=== PATIENT | male | born 2000 | race Two or more races ===

== ENCOUNTER 2021-06-29 02:11 | Emergency (ER) | payer OTHER ==
[~2021-06-29] VITALS: Ht 182.9 cm; Wt 72.6 kg
--- NOTE | 2021-06-29 02:20 | NUR ---
[facility], FOUND UNCONSCIOUS BY ROOMATES. GIVEN 8MG NASAL NARCAN. ADMITS TO TAKING XANAX. DENIES ANY S/I. CONNECTED PT TO POX AND MONITOR. SAFETY MEASURES IN PLACE
--- NOTE | 2021-06-29 02:45 | NUR ---
David HAND #20G S/L; PATENT AND INTACT. BLOOD COLLECTED AND GIVEN TO LAB [facility]
--- NOTE | 2021-06-29 02:50 | NUR ---
[employer] AT PT'S BEDSIDE
[2021-06-29 03:19] LABS: BASOPHILS % (AUTO) 0.3 % (0.0-2.0); EOSINOPHILS % (AUTO) 1.7 % (0.0-6.0); HEMATOCRIT 48 % (39-51); HEMOGLOBIN 15.9 g/dL (13.5-17.5); LYMPHOCYTES # (AUTO) 2.5 K/uL (0.8-4.8); LYMPHOCYTES % (AUTO) 20.6 % (20.0-44.0); MEAN CORPUSCULAR HGB CONC 34 g/dl (31.0-36.0); MEAN CORPUSCULAR VOLUME 89 fL (80-96); MONOCYTES # (AUTO) 0.5 K/uL (0.1-1.30); MONOCYTES % (AUTO) 4.1 % (2.0-12.0); NEUTROPHILS # (AUTO) 8.9 K/uL (1.8-8.9); NEUTROPHILS % (AUTO) 73.3 % (43.0-81.0); PLATELET COUNT (AUTO) 222 K/uL (150-450); RED BLOOD CELL COUNT(AUTO) 5.31 MIL/uL (4.5-6.0); WHITE BLOOD COUNT (AUTO) 12.1 K/uL (4.3-11.0)
[2021-06-29 03:28] LABS: ALANINE AMINOTRANSFERASE 31 U/L (12-78); ALBUMIN 4.3 g/dL (3.4-5.0); ALCOHOL, BLOOD < 3 mg/dL (0-0); ALKALINE PHOSPHATASE 136 U/L (46-116); ASPARTATE AMINOTRANSFERASE 23 U/L (15-37); BILIRUBIN,DIRECT 0.1 mg/dL (0.0-0.2); BILIRUBIN,TOTAL 0.3 mg/dL (0.2-1.0); CALCIUM, SERUM 9.4 mg/dL (8.5-10.1); CARBON DIOXIDE 25 mmol/L (21-32); CHLORIDE 100 mmol/L (98-107); CREATININE 0.9 mg/dL (0.6-1.3); GLUCOSE 169 mg/dL (74-106); POTASSIUM 3.5 mmol/L (3.5-5.1); SODIUM SERUM 137 mmol/L (136-145); UREA NITROGEN, BLOOD 14 mg/dL (7-18)
[2021-06-29 03:31] LABS: ACETAMINOPHEN 0 ug/ml (10-30)
--- NOTE | 2021-06-29 03:45 | NUR ---
URINE COLLECTED AND SENT TO LAB
[2021-06-29 04:20] LABS: BILIRUBIN,URINE NEGATIVE (NEGATIVE); COLOR,URINE YELLOW (YELLOW); LEUKOCYTE ESTERASE ,URINE NEGATIVE (NEGATIVE); NITRITE, URINE NEGATIVE (NEGATIVE); PROTEIN,URINE NEGATIVE (NEGATIVE); UGLUCOSE NEGATIVE (NEGATIVE); UROBILINOGEN,URINE 0.2 EU/dL (0.2)
--- NOTE | 2021-06-29 05:05 | NUR ---
CALLED [facility] [phone], LEFT MESSAGE
--- NOTE | 2021-06-29 05:21 | NUR ---
PT VERBALIZED UNDERSTANDING OF DC INSTRUCTIONS & SIGNED PAPER WORK
[2021-06-29] MEDS ORDERED: ONDANSETRON HCL/PF 4 MG/2 ML VIAL ONE (05:59)
[2021-06-29] MEDS ORDERED: ONDANSETRON HCL/PF 4 MG/2 ML VIAL IV ONE (06:00)
--- NOTE | 2021-06-29 09:16 | NUR ---
geoff called,left message to call back
--- NOTE | 2021-06-29 10:45 | NUR ---
SS Consult: SS Consult requested for Drug abuse. The pt. is a 20-year-old male patient who was BIBRA to ED after roommates found him unresponsive. Upon SS consult, the pt. is Alert & Oriented x 4 and makes avoidant eye contact. The pt. appears well-groomed and presents with and depressed mood and affect. Pt. has quiet low speech. The pt. cooperative with SW. Pt. denies current SI/HI and denies hallucinations. VU explored pt.s living situation. Per the pt., he currently resides at [facility] [[address] [facility] [address]; [phone]]. Pt. states declined to discuss his support system. SW explored pt.s drug & ETOH use. Pt. states he uses Xanax and pt. tox report shows use of Cannabinoids. rice field worker provided support with motivational interviewing, education regarding prescription drug dependence, brief intervention and referral to treatment. Pt. stated that he is wanting to return to the treatment center he came from. Per pt. he is receiving PHPIOP at the location. VU explored pt.s mental health Hx. Pt. denies any Hx. with mental health issues. Pt. states he receives Food stamps. Per pt. he is ambulatory & independent with all his ADLs. Plan: VU provided pt. with Addiction resources and he accepted them. Pt. states he will be able to return to [facility] [[address] [facility] [address]; [phone]]. ADDICTION RESOURCES For Drugs and Alcohol [facility] Substance Abuse Helpline([facility] Outpatient treatment, residential treatment, recovery support for youth and adults [facility] www.[facility]familycounseling.[employer] [facility] Teen programs for drug/alcohol education and support [facility] [place]. Program for adults, sliding scale provides support and education [employer] www.[employer].org [place]; Outpatient/residential treatment programs; transition to sober living [facility] www.cri-help.org [place]; Outpatient and residential treatment programs; transition to sober living [facility] [place]; Outpatient education and supportive programs for teens and adults [facility] www.oasiswomensrecovery.org [place]; Residential treatment and work program for females only [place] www.[employer] [facility].[employer] [place]: Outpatient/residential treatment program for teens and young adults [facility] www.[facility].org [place] Detox, inpatient, outpatient for adults and youth [facility], [facility]. [place]; Outpatient programs and referrals to community residential programs. Alcoholics Anonymous -SFV information and meeting and schedules www.aa-intergroup.org [place]-Tqsq-Wkjaymr https://al-anonereida.org/ [place] support groups for family of alcoholics. Marijuana Anonymous www.madistrict6.org -SFV listing of meetings Narcotics Anonymous www.na.org SOBER LIVING RESOURCES [facility] www.soberhousing.net A non-profit agency that provides resources to recovery and sober living homes [facility] Sober Living Homes: A Work in ProgressFidelina [facility]oc[facility], [place] [facility] [place] [facility] Homes: [facility] [address] [place], [facility] Sober Living Homes: [facility]--Outpatient [facility] [address] [place] [address] (Specializes in in-depth psychotherapy for emotional distress: anxiety, depression, interpersonal conflicts, life transitions, childhood abuse) [facility] [address] [place] [address] (Assist with solving problem marital difficulties, separation & divorce, aging parents, & grief, chronic & terminal illness) [facility] [address] [place] [address] (Deal with loss & grief, anxiety, marital difficulties) Homebound/Mental Health Services [address] [facility] [address] [place] [address] (Provide in-home mental services to people who are incapable of leaving their homes) [facility] Needs of the Elderly [facility] [address] [place] [address] [facility] [address] [place] [address] Mental Health Services [facility] [address] [place] [address] Services: Outpatient therapy for children, teens, young adults, adults, older adults, and families; Psychiatric services, medication support Psychiatric Outpatient Services [facility] Partial Hospitalization and Intensive Outpatient Program (Managed Care and [place] Only)[address] [facility] [phone] [facility] Partial Hospitalization and Outpatient [id number] [facility]. [address] [place], [place] [phone] [facility] Partial Hospitalization and Outpatient [id number] [place], [place] [phone] [facility] [place] [id number] [facility] [address] [place], [place] [phone] [facility] Partial Hospitalization and Outpatient [id number] [facility] [place], [phone] Crisis and Hotline Telephone Numbers 24-Hour service unless stated [place] Crisis Hotlines: [place] Mental Health/Crisis Line........867.595.5342 Suicide Prevention Center (24 Hours).......719.646.2875 Suicide Prevention Crisis Center.......[phone] (24 Hours) Assaults Against Women Hotline.........695.943.5444 (24 Hours -- [facility]) Women and Children Crisis [facility]...........[phone] (24 Hours) Child Abuse Hotline............684.145.9273 [facility] (24 Hours)..........[phone] Alcoholics Anonymous (24 Hours)..........839.410.8488 Cocaine Anonymous (24 Hours)............482.578.4971 Narcotics Anonymous (24 Hours)..........[phone] [address] [facility] [address], [place], [place] [address]
--- NOTE | 2021-06-29 11:20 | NUR ---
IV removed. Catheter intact and site benign. Pressure and 4x4 applied to site. No bleeding noted.
--- NOTE | 2021-06-29 11:21 | NUR ---
pt sent back to his rehab place medically cleared. aaox4, ambulatory w/ steady gait. provided w/ transportation. taxi voucher. vss.
[2021-06-29 11:23] VITALS: BP 121/76
== END 2021-06-29 11:24 | disposition home or self-care (01) ==
LOC: ER 02:13
DX: T50.901A Poisoning by unspecified drugs, medicaments and biological substances, accidental (unintentional), initial encounter (principal); F19.10 Other psychoactive substance abuse, uncomplicated; R94.31 Abnormal electrocardiogram [ECG] [EKG]; Y92.89 Other specified places as the place of occurrence of the external cause
CPT/HCPCS: 36415; 80048; 80076; 80143; 80307; 80320; 81003; 85025; 93005; 96374; 99284; J2405; G0480